=== PATIENT | female | born 1980 | race Caucasian/White ===

== ENCOUNTER → 2018-05-21 | Outpatient (CLI) | payer OTHER ==
[~2018-05-21] MED LIST: ADDERALL 20 MG20 MG PO; AMBIEN 10 MG TA10 MG PO; CELEXA40 MG PO; CYMBALTA60 MG PO; DEPLIN-ALGAL O1 EAC1 PO; HALDOL; IBUPROFEN 800800 MG PO; LIORESAL 10 MG10 MG PO; LITHIUM CARBON300 M3 PO; LORTABELXR PO; LOXAPINE10 MG PO; LYRICA 50 MG50 MG PO; MAGOX 400400 MG PO; NEURONTIN 300M300 M2 PO; PERCOCET 5-3251 EACH PO; PERCOCET PO; PREDNISONE50 MG PO; PRILOSEC 20 MG20 MG PO; RELPAX40 MG PO; RIZATRIPTAN10 MG PO; SEROQUEL 100 M100 MG; TIZANIDINE HCL4 M1 PO; TOPAMAX 100 MG100 MG PO; TOPAMAX 25 MG T25 M1 PO; UNICOMPLEX M TA1 TA1 PO; VALIUM5 MG PO; VITAMIN B-12500 MCG PO; VITAMIN D 5050000 I1 PO; WELCHOL 625 MG625 MG PO; WELLBUTRIN 100100 MG PO
[2018-05-21 11:41] LABS: ALBUMIN 3.3 g/dL (3.4-5.0); DIRECT BILIRUBIN 0.1 mg/dL (<0.1-0.3); TOTAL BILIRUBIN 0.2 mg/dL (<0.1-1.0); TOTAL PROTEIN 6.9 g/dL (6.4-8.2)
== END ==
LOC: M.LAB 10:57
PROVIDERS: Podiatrist Foot & Ankle Surgery
DX: B35.1 Tinea unguium (principal)

== ENCOUNTER → 2018-06-28 | Outpatient (CLI) | payer OTHER ==
[2018-06-28 12:04] LABS: ALBUMIN 3.2 g/dL (3.4-5.0); DIRECT BILIRUBIN 0.1 mg/dL (<0.1-0.3); TOTAL BILIRUBIN 0.4 mg/dL (<0.1-1.0); TOTAL PROTEIN 7.2 g/dL (6.4-8.2)
== END ==
LOC: M.LAB 11:27
PROVIDERS: Podiatrist Foot & Ankle Surgery
DX: B35.1 Tinea unguium (principal); E78.00 Pure hypercholesterolemia, unspecified

== ENCOUNTER → 2019-09-02 | Outpatient (CLI) | payer OTHER | LOC: M.RAD 13:48 | DX: M77.31 Calcaneal spur, right foot (principal) ==

== ENCOUNTER 2021-07-11 05:27 | Inpatient (IN) | payer OTHER, MEDICARE ==
[~2021-07-11] VITALS: Ht 165.1 cm; Wt 133.8 kg
[~2021-07-11 05:27] MED LIST changes: +PRILOSEC OTC20 MG PO; +SUPER MULTIPLE1 EACH PO; -UNICOMPLEX M TA1 TA1 PO; +VALIUM10 MG PO; -VALIUM5 MG PO; -VITAMIN D 5050000 I1 PO; +VITAMIN D PO
[2021-07-11 05:36] VITALS: BP 132/75
[2021-07-11 06:33] LABS: BE -2.3 mmol/L (-2 to +3); PCO2 29.5 mmHg (35.0-45.0); PO2 69.1 mmHg (75.0-100.0); pH 7.458 (7.340-7.450)
[2021-07-11 06:39] LABS: ABSOLUTE LYMPHOCYTES 2.2 thou/uL (0.8-5.3); ABSOLUTE MONOCYTES 1.2 thou/uL (0.0-1.2); ABSOLUTE NEUTROPHILS 14.1 thou/uL (1.6-8.1); BASOPHILS 0.2 %; HEMATOCRIT 37.5 % (37.0-47.0); HEMOGLOBIN 12.4 gm/dL (12.0-15.0); LYMPHOCYTES 12.3 %; MCH 29.6 pg (26.0-34.0); MCV 89.6 fL (80.0-100.0); MONOCYTES 6.9 %; MPV 10.1 fl. (7.2-11.1); NUCLEATED RBCS 0 /100WBC; PLATELET COUNT* 179 thou/uL (150-400); POLYS 80.6 %; RBC 4.18 mil/uL (4.20-5.00); RDW-CV 13.3 % (10.5-14.5); WBC 17.5 thou/uL (4.0-11.0)
[2021-07-11 06:43] LABS: CALCIUM 8.2 mg/dL (8.5-10.1); CREATININE 0.7 mg/dL (0.6-1.3)
[2021-07-11 06:45] LABS: POTASSIUM 2.8 mmol/L (3.5-5.1)
[2021-07-11 06:47] LABS: ALBUMIN 2.7 g/dL (3.4-5.0); MAGNESIUM 1.7 mg/dL (1.8-2.4); TOTAL BILIRUBIN 0.4 mg/dL (<0.1-1.0); TOTAL PROTEIN 7.1 g/dL (6.4-8.2)
[2021-07-11 08:55] LABS: URINE BILIRUBIN NEGATIVE (Negative); URINE BLOOD 1+ (Negative); URINE CLARITY CLEAR; URINE COLOR YELLOW; URINE GLUCOSE-RANDOM NEGATIVE (Negative); URINE KETONES 2+ (Negative); URINE LEUKOCYTES-REFLEX 1+ (Negative); URINE PROTEIN TRACE (Negative); URINE UROBILINOGEN 0.2 E.U./dl (0.2-1.0)
[2021-07-11 08:59] LABS: URINE NITRITE-REFLEX POSITIVE (Negative)
[2021-07-11 09:03] LABS: AMP/METHAMP POSITIVE (Negative); BARBITURATES Negative (Negative); BENZODIAZEPINES POSITIVE (Negative); COCAINE Negative (Negative); METHADONE Negative (Negative); OPIATES Negative (Negative); PCP Negative (Negative); THC POSITIVE (Negative)
[2021-07-11 09:05] LABS: SQUAMOUS 4-10 Moderate /LPF (0-3); URINE WBC-REFLEX 6-15 Few /HPF (0-5)
[2021-07-11 09:06] LABS: CHOLESTEROL 123 mg/dL (<200); HDL CHOLESTEROL 78 mg/dL (>40); LDL CHOLESTEROL 34 mg/dL (<100); TC:HDL 1.6 Ratio (Not establshd); TRIGLYCERIDE 59 mg/dL (<150); VLDL 12 mg/dL (<40)
[2021-07-11 09:06] LABS: CASTS None Seen /LPF (None Seen); CRYSTALS None Seen /LPF (None Seen); MUCUS 0-3 Light strn/LPF (None Seen); URINE RBC 3-10 Few /HPF (0-2)
[2021-07-11 09:15] LABS: SERUM ASSESSMENT Clear
[2021-07-11 09:37] VITALS: BP 109/59
[2021-07-11 09:50] VITALS: BP 118/62
--- NOTE | 2021-07-11 15:43 | EKG ---
[place] [address] ELECTROCARDIOGRAM REPORT Name: FRANCISCO MOISE Room: [address] ADM IN M.R.#: [id number] Admission: 07/11/21 Attend Phys: Ferdo Aguilar, Discharge: Date of : 78 Date of Service: 07/11/21 0536 Report #: [id number] THIS REPORT FOR: //name// [facility] ED Test Date: 2021-07-11 Test Time: 05:36:48 Pat Name: FRANCISCO MOISE Department: Room: [facility] Gender: F [employer]or: : 1980 Requested By: Lizeth Reynolds Order Number: [id number] MD: Ruel Llanes Measurements Intervals [place] Rate: 106 P: 49 [place]: 163 QRS: -16 QRSD: 150 T: 66 QT: 376 QTc: 500 Interpretive Statements Sinus tachycardia Left bundle branch block Baseline wander in lead(s) II,III,aVF No previous ECG available for comparison Electronically Signed On 07-11-2021 15:42:58 CDT by Ruel Llanes [email or web address] <ELECTRONICALLY SIGNED> By: Ruel Llanes MD, FAC 07/11/21 1542 0536 0536 Ruel Llanes MD, [facility] /EPI
[2021-07-11 20:00] VITALS: BP 99/60
[2021-07-11 23:06] LABS: GLYCOHEMOGLOBIN (HGB A1C) 5.4 % (4.8-5.6)
[2021-07-12 04:23] LABS: HEMATOCRIT 35.3 % (37.0-47.0); HEMOGLOBIN 11.5 gm/dL (12.0-15.0); MCH 29.4 pg (26.0-34.0); MCHC 32.5 g/dL (28.0-37.0); MCV 90.6 fL (80.0-100.0); MPV 10.2 fl. (7.2-11.1); RBC 3.89 mil/uL (4.20-5.00); RDW-CV 13.9 % (10.5-14.5)
[2021-07-12 04:40] VITALS: BP 108/48
[2021-07-12 04:45] LABS: ALBUMIN 2.3 g/dL (3.4-5.0); CALCIUM 8.1 mg/dL (8.5-10.1); CREATININE 0.6 mg/dL (0.6-1.3); MAGNESIUM 2.3 mg/dL (1.8-2.4); TOTAL BILIRUBIN 0.2 mg/dL (<0.1-1.0); TOTAL PROTEIN 6.7 g/dL (6.4-8.2)
[2021-07-12 04:46] LABS: POTASSIUM 4.1 mmol/L (3.5-5.1)
[2021-07-12 08:00] VITALS: BP 106/55
--- NOTE | 2021-07-12 08:56 | CON ---
[address] [address] CONSULTATION Name: JOSE MARIAFRANCISCODEMETRIO MOODY Room: [address] IN M.R.#: [id number] Admission: 07/11/21 Attend Phys: Fredo Aguilar MD Discharge: Date of : 78 Report #: [id number] THIS REPORT FOR: cc: Jaz Martinez Maggie M. DO Liston, Michael J. MD [facility] ~ DATE OF CONSULTATION: 07/11/2021 CARDIOLOGY CONSULT INDICATION: Left bundle branch block and shortness of breath. HISTORY OF PRESENT ILLNESS: The patient is a 41-year-old white female with no prior cardiac history. She presents to the Emergency Room with increasing shortness of breath over the past 2 days. She also complains of sore throat and pain with swallowing. She reports some generalized chest tightness without radiation. Initial EKG showed sinus rhythm with left bundle branch block. High sensitivity troponins are negative x 2. She has no prior cardiac history. The only significant cardiac risk factor is tobacco use. PAST SURGICAL HISTORY: 1. Cholecystectomy in 2003. 2. Carpal tunnel surgery in 2013. 3. Tonsillectomy and adenoidectomy in 1994. 4. Ganglion cyst removal in 1996 and 2004. HOME MEDICATIONS: Duloxetine, omeprazole, oxycodone, Adderall, baclofen, bupropion, Deplin-Algal oil, diazepam, lithium, loxapine, pregabalin, magnesium oxide, Relpax, vitamin B12, vitamin D and multivitamin. ALLERGIES: None documented. SOCIAL HISTORY: The patient drinks alcohol. She smokes cigarettes. FAMILY HISTORY: Noncontributory. PHYSICAL EXAMINATION: VITAL SIGNS: Blood pressure 109/59, pulse 99 and regular. GENERAL: A moderately obese white female in no distress. HEENT: Normocephalic, atraumatic. Extraocular muscles intact. Mucous membranes are moist. NECK: Shows no jugular venous distention. There are no carotid bruits. CHEST: Reveals clear lung thacker. CARDIAC: Reveals a regular rhythm without gallop or murmur. ABDOMEN: Reveals [place] [address] CONSULTATION Name: FRANCISCO MOISE HEIDY Room: [address] IN [facility]#: [id number] Admission: 07/11/21 Attend Phys: Fredo Aguilar MD Discharge: Date of : 78 Report #: [id number] EXTREMITIES: Shows no edema. LABORATORY DATA: Reviewed. Sodium 135, potassium 2.8, chloride 101, bicarbonate 22, BUN 6, creatinine 0.7, serum glucose 132. LFTs within normal limits. Magnesium 1.7. High sensitivity troponins are 9 and 9. Chest x-ray shows no acute process. CT of the chest shows some nodular infiltrates, right greater than left. IMPRESSION AND RECOMMENDATIONS: 1. Atypical chest pain. The patient is ruled out for myocardial infarction. Recommend echocardiogram and consider noninvasive stress testing as outpatient. 2. Left bundle branch block. We will correct her potassium and magnesium and repeat EKG. Echocardiogram ordered and pending. <ELECTRONICALLY SIGNED> By: Ruel Llanes MD, FACC 07/12/21 0856 1229 1448Ruel Llanes MD, FACC /nt
[2021-07-12 12:00] VITALS: BP 120/63
[2021-07-12 16:00] VITALS: BP 95/59
[2021-07-12 20:00] VITALS: BP 103/56
[2021-07-13] VITALS: BP 101/52
[2021-07-13 04:00] VITALS: BP 112/68
[2021-07-13 04:23] LABS: HEMOGLOBIN 11.9 gm/dL (12.0-15.0); MCH 29.6 pg (26.0-34.0); MCHC 32.2 g/dL (28.0-37.0); MCV 91.9 fL (80.0-100.0); MPV 10.7 fl. (7.2-11.1); RBC 4.03 mil/uL (4.20-5.00); RDW-CV 14.6 % (10.5-14.5); WBC 10.4 thou/uL (4.0-11.0)
[2021-07-13 04:31] LABS: ALBUMIN 2.5 g/dL (3.4-5.0); CALCIUM 8.6 mg/dL (8.5-10.1); CREATININE 0.6 mg/dL (0.6-1.3); MAGNESIUM 2.4 mg/dL (1.8-2.4); TOTAL BILIRUBIN 0.2 mg/dL (<0.1-1.0); TOTAL PROTEIN 6.9 g/dL (6.4-8.2)
[2021-07-13 04:38] LABS: PREALBUMIN 13.8 mg/dL (18.0-35.7)
[2021-07-13 08:00] VITALS: BP 116/62
[2021-07-13] MEDS ORDERED: CEFDINIR300 MG PO (09:49)
[2021-07-13] MEDS ORDERED: VIBRAMYCIN 100100 MG PO (09:49)
[2021-07-13] MEDS ORDERED: PREDNISONE 20 M20 M1 PO (09:49)
[2021-07-13] MEDS ORDERED: FLORASTOR250 MG PO (09:49)
[2021-07-13] MEDS ORDERED: DIFLUCAN150 M1 PO (09:50)
[2021-07-13 14:13] VITALS: BP 116/62
--- NOTE | 2021-07-13 14:27 | 2DMMODE ---
[place] [address] 2 D/M-MODE ECHOCARDIOGRAM Name: FRANCISCO MOISE Room: [address] IN .R.#: [id number] Admission: 07/11/21 Attend Phys: Fredo Aguilar, Discharge: Date of : 78 Date of Service: 07/13/21 1427 Report #: [id number] THIS REPORT FOR: cc: Jaz Martinez Maggie M. DO Liston, Michael J. MD [facility] ~ APPROVED REPORT Study performed: 07/13/2021 10:53:44 EXAM: Comprehensive 2D, Doppler, and color-flow Echocardiogram Patient Location: In-Patient Room #: 224 Status: routine BSA: 2.28 HR: 45 bpm BP: 116/62 mmHg Rhythm: NSR Other Information Study Quality: Good Indications hypoxia 2D Dimensions IVSd: 9.35 (7-11mm) LVOT Diam: 20.76 (18-24mm) LVDd: 52.05 mm PWd: 8.80 (7-11mm) Ascending Ao: 31.49 (22-36mm) LVDs: 31.10 (25-40mm) Aortic Root: 30.65 mm Volumes Left Atrial Volume (Systole) LA ESV Index: 37.90 mL/m2 Aortic Valve AoV Peak Espinoza.: 1.36 m/s AO Peak Gr.: 7.36 mmHg LVOT Max P.46 mmHg AO Mean Gr.: 3.51 mmHg LVOT Mean P.12 mmHg LVOT Max V: 1.06 m/s AO V2 VTI: 31.65 cm LVOT Mean V: 0.67 m/s WILLEM (VTI): 2.72 cm2 LVOT V1 VTI: 25.42 [place] [address] 2 D/M-MODE ECHOCARDIOGRAM Name: FRANCISCO MOISE Room: [address] IN ..#: [id number] Admission: 07/11/21 Attend Phys: Fredo Aguilar, Discharge: Date of : 78 Date of Service: 07/13/21 1427 Report #: [id number] Mitral Valve E/A Ratio: 1.24 MV Decel. Time: 267.28 ms MV E Max Espinoza.: 0.98 m/s MV PHT: 77.51 ms MVA (PHT): 2.84 cm2 TDI E/Lateral E': 9.80 E/Medial E': 7.54 Medial E' Espinoza.: 0.13 m/s Lateral E' Espinoza.: 0.10 m/s Pulmonary Valve PV Peak Espinoza.: 0.90 m/s PV Peak Gr.: 3.23 mmHg Tricuspid Valve RAP Estimate: 5.00 mmHg TR Peak Gr.: 19.36 mmHg RVSP: 24.00 mmHg PA Pressure: 24.00 mmHg Left Ventricle The left ventricle is normal size. There is normal LV segmental wall motion. There is normal left ventricular wall thickness. Left ventricular systolic function is normal. LVEF is 55-60%. The left ventricular diastolic function is normal. Right Ventricle The right ventricle is normal size. The right ventricular systolic function is normal. Atria Left atrium is mildly dilated. The right atrium size is normal. Aortic Valve The aortic valve is normal in structure. No aortic regurgitation is present. There is no aortic valvular stenosis. Mitral Valve The mitral valve is normal in structure. Trace mitral regurgitation. No evidence of mitral valve stenosis. Tricuspid Valve The tricuspid valve is normal in structure. Trace tricuspid regurgitation. [place] [address] 2 D/M-MODE ECHOCARDIOGRAM Name: FRANCISCO MOISE Room: [address] IN [facility]#: [id number] Admission: 07/11/21 Attend Phys: Fredo Aguilar, Discharge: Date of : 78 Date of Service: 07/13/21 1427 Report #: [id number] Pulmonic Valve The pulmonary valve is normal in structure. Trace pulmonic regurgitation. Great Vessels The aortic root is normal in size. IVC is normal in size and collapses >50% with inspiration. Pericardium There is no pericardial effusion. <Conclusion> The left ventricle is normal size. There is normal left ventricular wall thickness. Left ventricular systolic function is normal. LVEF is 55-60%. The left ventricular diastolic function is normal. There is normal LV segmental wall motion. Left atrium is mildly dilated. Trace mitral regurgitation. Trace tricuspid regurgitation. No pulmonary hypertension. IVC is normal in size and collapses >50% with inspiration. <ELECTRONICALLY SIGNED> By: Ruel Llanes MD, FACC 07/13/21 1427 1427 1427 Ruel Llanes MD, FACC /INF
--- NOTE | 2021-07-13 17:42 | EKG ---
[place] [address] ELECTROCARDIOGRAM REPORT Name: FRANCISCO MOISE Room: [address] DIS IN M.R.#: [id number] Admission: 07/11/21 Attend Phys: Fredo Aguilar, Discharge: 07/13/21 Date of : 78 Date of Service: 07/11/21 0544 Report #: [id number] THIS REPORT FOR: //name// [facility] ED Test Date: 2021-07-11 Test Time: 05:44:40 Pat Name: FRANCISCO MOISE Department: Room: [address] Gender: F [employer] Supervisor: : 1980 Requested By: Fredo Aguilar Order Number: [id number] Brie MD: Ruel Llanes Measurements Intervals [place] Rate: 102 P: 47 [place]: 177 QRS: -16 QRSD: 152 T: 66 QT: 386 QTc: 503 Interpretive Statements Sinus tachycardia Left bundle branch block compared to ECG 07/11/2021 05:36:48 No significant changes noted Electronically Signed On 07-13-2021 17:41:56 CDT by Ruel Llanes [email or web address] <ELECTRONICALLY SIGNED> By: Ruel Llanes MD, [facility] 07/13/21 1741 0544 0544 Ruel Llanes MD, [facility] /EPI
--- NOTE | 2021-07-13 17:49 | EKG ---
[place] [address] ELECTROCARDIOGRAM REPORT Name: FRANCISCO MOISE Room: [address] DIS IN M.R.#: [id number] Admission: 07/11/21 Attend Phys: Fredo Aguilar, Discharge: 07/13/21 Date of : 78 Date of Service: 07/13/21 0946 Report #: [id number] THIS REPORT FOR: //name// [facility] Test Date: 2021-07-13 Test Time: 09:46:55 Pat Name: FRANCISCO MOISE Department: Room: [address] Gender: F Tile Setter: : 1980 Requested By: Ruel Llanes Order Number: [id number] Reading MD: Ruel Llanes Measurements Intervals [place] Rate: 40 P: 33 [place]: 169 QRS: 11 QRSD: 106 T: 15 QT: 501 QTc: 409 Interpretive Statements Sinus bradycardia Compared to ECG 07/11/2021 05:44:40 Sinus tachycardia no longer present Intraventricular conduction delay no longer present Myocardial infarct finding no longer present Electronically Signed On 07-13-2021 17:48:58 CDT by Ruel Llanes [email or web address] <ELECTRONICALLY SIGNED> By: Ruel Llanes MD, FACC 07/13/21 1748 0946 Ruel Llanes MD, FAC /EPI
== END 2021-07-13 15:23 | disposition home or self-care (01) | DRG 152 ==
LOC: M.ERS 05:27 → M.TBA-ER 07:02 → M.2W 07:02 → M.ORTHSURG 09:50 → M.2W 07-12 15:35
PROVIDERS: Internal Medicine; Personal Emergency Response Attendant; ADMIT Internal Medicine; ATTEND Internal Medicine
DX: J02.0 Streptococcal pharyngitis (principal); J18.9 Pneumonia, unspecified organism; N39.0 Urinary tract infection, site not specified; R65.10 Systemic inflammatory response syndrome (SIRS) of non-infectious origin without acute organ dysfunction; Z20.822 Contact with and (suspected) exposure to COVID-19; E87.6 Hypokalemia; I44.7 Left bundle-branch block, unspecified; R59.1 Generalized enlarged lymph nodes; R07.89 Other chest pain; F32.9 Major depressive disorder, single episode, unspecified; G43.909 Migraine, unspecified, not intractable, without status migrainosus; R73.9 Hyperglycemia, unspecified; B96.89 Other specified bacterial agents as the cause of diseases classified elsewhere; E83.42 Hypomagnesemia; Z90.49 Acquired absence of other specified parts of digestive tract; Z87.891 Personal history of nicotine dependence